=== PATIENT | female | born 1965 | race African-American/Black ===

== ENCOUNTER 2017-05-08 18:17 | Emergency (ER) | payer SELFPAY ==
[2017-05-08] MEDS ORDERED: Fluorescein Opthalmic Strip ONE (18:55)
[2017-05-08] MEDS ORDERED: Proparacaine 0.5% Opth 15 ML BOT ONE (18:55)
[2017-05-08] MEDS ORDERED: HYDROcodone/Acetaminophen 7.5/325 mg Tablet ONE (18:55)
[2017-05-08] MEDS ORDERED: Erythromycin Base 0.5% Oint 1 GM TUBE ONE (19:46)
[2017-05-08] MEDS ORDERED: Oxymetazoline HCl 0.05% ( 15 ML ) ONE (19:46)
== END 2017-05-08 20:15 | disposition home or self-care (01) ==
LOC: ERS 18:17
DX: H16.002 Unspecified corneal ulcer, left eye (principal); J01.90 Acute sinusitis, unspecified; H00.16 Chalazion left eye, unspecified eyelid; E78.5 Hyperlipidemia, unspecified; I10 Essential (primary) hypertension; F17.210 Nicotine dependence, cigarettes, uncomplicated; Z86.73 Personal history of transient ischemic attack (TIA), and cerebral infarction without residual deficits; Z79.899 Other long term (current) drug therapy
CPT/HCPCS: 99282

== ENCOUNTER 2017-06-30 11:11 | Emergency (ER) | payer OTHER, SELFPAY ==
[2017-06-30] MEDS ORDERED: Acetaminophen 500 MG TAB ONE (12:36)
[2017-06-30] MEDS ORDERED: Diazepam 5 MG TAB ONE (12:36)
[2017-06-30] MEDS ORDERED: traMADol HCl 50 MG TAB ONE (13:48)
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
== END 2017-06-30 14:13 | disposition home or self-care (01) ==
LOC: ERS 11:11
DX: S39.012A Strain of muscle, fascia and tendon of lower back, initial encounter (principal); M54.2 Cervicalgia; E78.5 Hyperlipidemia, unspecified; F17.210 Nicotine dependence, cigarettes, uncomplicated; I10 Essential (primary) hypertension; Z86.73 Personal history of transient ischemic attack (TIA), and cerebral infarction without residual deficits; V49.50XA Passenger injured in collision with unspecified motor vehicles in traffic accident, initial encounter
CPT/HCPCS: 72040

== ENCOUNTER 2017-09-08 09:46 | Emergency (ER) | payer OTHER, SELFPAY | END 2017-09-08 11:21 | disposition home or self-care (01) | LOC: ERS 09:46 | DX: B34.9 Viral infection, unspecified (principal); E78.5 Hyperlipidemia, unspecified; I10 Essential (primary) hypertension; F17.210 Nicotine dependence, cigarettes, uncomplicated; Z79.899 Other long term (current) drug therapy | CPT/HCPCS: 99283 ==

== ENCOUNTER 2017-11-09 09:17 | Emergency (ER) | payer SELFPAY ==
[2017-11-09] MEDS ORDERED: Acetaminophen/Codeine 30-300mg Tablet ONE (10:21)
[2017-11-09 10:41] LABS: Bilirubin Negative (Negative); Blood, Urine Negative (Negative); Clarity CLEAR (Clear); Glucose, Urine (Dipstick) Negative (Negative); Leukocyte Trace (Negative); Nitrite Negative (Negative); Protein, Urine (Dipstick) Negative (Neg-Trace); Specific Gravity, Urine 1.015 (1.002-1.036); pH, Urine 6.5 (5.0-9.0)
[2017-11-09 10:43] LABS: Bacteria/HPF Rare-Few HPF (None Seen); Hyaline Casts/LPF 4-6 HYALINE CAST LPF (0-3 Hyaline); Pathc Cast-AUWi Flag 1.45 (0-2.49); Pregnancy Test - Urine (BHCG) Negative (Negative); Pregu Control Background? CLEAR/WHITE (CLR/WHITE); Pregu Control Bar Appear? YES (CONTROL BAR); Specific Gravity 1.015 (1.002-1.036)
--- NOTE | 2017-11-09 11:45 | ULT ---
PELVIC ULTRASOUND: Date: 11-09-17 History: Left sided pelvic pain. FINDINGS: Multiple transabdominal and endovaginal sonographic images of the pelvis are obtained. The ovaries ar e not visualized and there is only limited visualization of the uterus on transabdominal imaging. On endovaginal imaging, the uterus measures 8.8 cm x 6.0 cm x 8.9 cm. There is a slightly heterogeneo us mass in the left aspect of the body of the uterus measuring 5.8 cm x 5.3 cm x 5.1 cm. There is a s mall hypoechoic mass seen in the anterior aspect body of the uterus which measures 1.6 cm x 1.0 x 1.6 cm. These masses are likely related to uterine fibroids. Masses were seen in the uterus on prior exa m on 03-28-16. Measurements of the larger uterine mass on this exam are actually smaller than on the p rior exam where the mass measured 6.4 cm x 5.9 cm x 5.6 cm. The endometrial stripe measures 0.8 cm which is abnormal in a post-menopausal female patient but woul d be within normal limits in a pre-menopausal female patient. The ovaries are not seen due to shadowing from bowel gas. There is a small amount of free fluid seen in the cul-de-sac. IMPRESSION: 1. Endometrial stripe thickness measures 0.8 cm. As noted above, this is abnormal in a post-menopausa l female patient but would be within normal limits in a normal menstruating patient. 2. Uterine masses with largest uterine mass also seen on prior study in 2016. The smaller hypoechoic mass was not visualized on the prior study. However, findings are likely related to uterine fibroids . 3. Nonvisualization of bilateral ovaries. No adnexal mass is appreciated on this examination, but the re is limited evaluation due to shadowing from bowel gas. 3. Small amount of free fluid in the cul-de-sac. POS: [facility]
== END 2017-11-09 12:21 | disposition home or self-care (01) ==
LOC: ERS 09:17
DX: D25.9 Leiomyoma of uterus, unspecified (principal); E78.5 Hyperlipidemia, unspecified; I10 Essential (primary) hypertension; Z86.73 Personal history of transient ischemic attack (TIA), and cerebral infarction without residual deficits; F17.210 Nicotine dependence, cigarettes, uncomplicated; Z79.899 Other long term (current) drug therapy
CPT/HCPCS: 76856; 81003; 81015; 81025

== ENCOUNTER 2018-01-16 14:29 | Emergency (ER) | payer SELFPAY | END 2018-01-16 15:15 | disposition home or self-care (01) | LOC: ERS 14:29 | DX: H10.9 Unspecified conjunctivitis (principal); J32.9 Chronic sinusitis, unspecified; E78.5 Hyperlipidemia, unspecified; I10 Essential (primary) hypertension; Z86.73 Personal history of transient ischemic attack (TIA), and cerebral infarction without residual deficits; F17.210 Nicotine dependence, cigarettes, uncomplicated; Z79.899 Other long term (current) drug therapy | CPT/HCPCS: 99406 ==

== ENCOUNTER 2018-04-03 21:42 | Emergency (ER) | payer OTHER, SELFPAY ==
--- NOTE | 2018-04-03 22:31 | RAD ---
RADIOGRAPH CHEST 1 VIEW: HISTORY: A 52-year-old female with chest pain. FINDINGS: There are no air space densities, pulmonary edema, pneumothorax, or cardiomegaly. The lateral costop hrenic angles are sharp. IMPRESSION: No acute cardiopulmonary findings. jn [] POS: [facility]
[2018-04-03 22:58] LABS: Bilirubin Negative (Negative); Blood, Urine Negative (Negative); Clarity CLEAR (Clear); Glucose, Urine (Dipstick) Negative (Negative); Leukocyte Negative (Negative); Nitrite Negative (Negative); Protein, Urine (Dipstick) Negative (Neg-Trace); Specific Gravity, Urine 1.019 (1.002-1.036); pH, Urine 6.5 (5.0-9.0)
[2018-04-03] MEDS ORDERED: Metoclopramide HCl 10 MG/2 ML VIAL ONE (23:00)
[2018-04-03] MEDS ORDERED: diphenhydrAMINE 50 MG/ML VIAL ONE (23:00)
[2018-04-03 23:09] LABS: #Eosinphils 0.1 thou/uL (0.0-0.7); #Lymphocytes 1.5 thou/uL (1.20-3.40); #Monocytes 0.5 thou/uL (0.11-0.59); #Neutrophils 1.8 thou/uL (1.40-6.50); %Basophils 1.1 % (0.0-1.0); %Eosinophils 1.7 % (0.0-10.0); %Lymphocytes 38.4 % (21.0-51.0); %Monocytes 12.2 % (0.0-10.0); %Neutrophils 46.6 % (42.0-75.0); Hemoglobin 13.4 g/dL (12.0-16.0); Mean Corpuscular HGB CONC 35.3 g/dL (32.0-36.0); Mean Corpuscular Hemoglobin 30.4 pg (27.0-31.0); Mean Corpuscular Volume 86.1 fL (78.0-98.0); Mean Platelet Volume 7.9 fL (7.4-10.4); Platelet Count 229 thou/uL (130-400); RBC Distribution Width 13.9 % (11.5-14.5); Red Blood Cell (RBC) Count 4.39 mill/uL (4.20-5.40); White Blood Cell (WBC) Count 3.9 thou/uL (4.8-10.8)
[2018-04-03 23:30] LABS: ALT (SGPT) 11 U/L (8-55); AST (SGOT) 13 U/L (5-34); Albumin 3.8 g/dL (3.5-5.0); Alkaline Phosphatase 45 U/L (40-150); Anion Gap 11 mmol/L (10-20); BUN (Urea Nitrogen) 16 mg/dL (9.8-20.1); Bilirubin, Total 0.2 mg/dL (0.2-1.2); Calc. Creatinine Clearance 0 mL/min (70-130); Calcium 9.1 mg/dL (7.8-10.44); Carbon Dioxide 27 mmol/L (22-29); Chloride 104 mmol/L (98-107); Estimated GFR-MDRD 68; Globulin 3.6 g/dL (2.4-3.5); Glucose 102 mg/dL (70-105); Potassium 3.5 mmol/L (3.5-5.1); Protein, Total 7.4 g/dL (6.0-8.3); Sodium 138 mmol/L (136-145)
[2018-04-03 23:34] LABS: CKMB 1.4 ng/mL (0-6.6); Troponin I Less than 0.010 ng/mL (< 0.028)
== END 2018-04-04 00:18 | disposition home or self-care (01) ==
LOC: ERS 21:42
DX: R51 Headache (principal); R07.89 Other chest pain; E78.5 Hyperlipidemia, unspecified; I10 Essential (primary) hypertension; Z86.73 Personal history of transient ischemic attack (TIA), and cerebral infarction without residual deficits; F17.210 Nicotine dependence, cigarettes, uncomplicated; Z79.899 Other long term (current) drug therapy
CPT/HCPCS: 71045; 80053; 81003; 82553; 84484; 84702; 85025; 85379; 93005; 94760; 96365; 96375; J1200; J2765

== ENCOUNTER 2018-04-08 10:52 | Emergency (ER) | payer SELFPAY ==
[2018-04-08] MEDS ORDERED: Ondansetron HCl/PF 4 MG/2 ML Vial ONE (11:22)
[2018-04-08] MEDS ORDERED: Morphine 4 MG/ML VIAL ONE (11:25)
[2018-04-08 11:36] LABS: Bilirubin Negative (Negative); Blood, Urine Negative (Negative); Clarity CLOUDY (Clear); Glucose, Urine (Dipstick) Negative (Negative); Leukocyte Negative (Negative); Nitrite Negative (Negative); Protein, Urine (Dipstick) Negative (Neg-Trace); Specific Gravity, Urine 1.026 (1.002-1.036); Urobilinogen 0.2 mg/dL (0.2-1.0)
[2018-04-08 11:37] LABS: Pregnancy Test - Urine (BHCG) Negative (Negative); Pregu Control Background? CLEAR/WHITE (CLR/WHITE); Pregu Control Bar Appear? YES (CONTROL BAR); Specific Gravity 1.026 (1.002-1.036)
[2018-04-08 11:40] LABS: #Eosinphils 0.1 thou/uL (0.0-0.7); #Lymphocytes 1.4 thou/uL (1.20-3.40); #Monocytes 0.8 thou/uL (0.11-0.59); #Neutrophils 3.8 thou/uL (1.40-6.50); %Basophils 0.8 % (0.0-1.0); %Lymphocytes 22.5 % (21.0-51.0); %Monocytes 12.7 % (0.0-10.0); %Neutrophils 63.1 % (42.0-75.0); Hemoglobin 13.5 g/dL (12.0-16.0); Mean Corpuscular HGB CONC 35.5 g/dL (32.0-36.0); Mean Corpuscular Hemoglobin 30.6 pg (27.0-31.0); Mean Corpuscular Volume 86.2 fL (78.0-98.0); Mean Platelet Volume 7.9 fL (7.4-10.4); Platelet Count 252 thou/uL (130-400); RBC Distribution Width 13.7 % (11.5-14.5)
[2018-04-08 11:52] LABS: ALT (SGPT) 10 U/L (8-55); AST (SGOT) 16 U/L (5-34); Alkaline Phosphatase 41 U/L (40-150); Anion Gap 12 mmol/L (10-20); BUN (Urea Nitrogen) 12 mg/dL (9.8-20.1); Bilirubin, Total 0.4 mg/dL (0.2-1.2); Calc. Creatinine Clearance 0 mL/min (70-130); Calcium 9.1 mg/dL (7.8-10.44); Carbon Dioxide 26 mmol/L (22-29); Chloride 103 mmol/L (98-107); Estimated GFR-MDRD 84; Globulin 3.7 g/dL (2.4-3.5); Glucose 98 mg/dL (70-105); Lipase 21 U/L (8-78); Potassium 3.2 mmol/L (3.5-5.1); Protein, Total 7.7 g/dL (6.0-8.3); Sodium 138 mmol/L (136-145)
--- NOTE | 2018-04-08 14:45 | ULT ---
RIGHT UPPER QUADRANT ULTRSOUND: DATE: 04/08/18. COMPARISON: None. HISTORY: Abdominal pain. TECHNIQUE: Multiplanar, quiñones scale sonographic imaging of the right upper quadrant provided. FINDINGS: The visualized pancreas is unremarkable, partially obscured by bowel gas and limited in assessment on the basis of patient body habitus. No focal liver lesion or intrahepatic biliary dilatation is note d. The right kidney measures 12 cm in craniocaudal dimension and demonstrates o evidence for a stone, hy dronephrosis, or mass. The hepatic parenchyma is mildly echogenic and heterogeneous. This could signify a degree of hepatic steatosis. The common bile duct measures approximately 5 mm, within normal limits. There is no gallbladder wall thickening, pericholecystic fluid, or gallstones. The screen making supervisor reports a positive Montiel's sign, significance uncertain. The right kidney measures 12 cm craniocaudal dimension and demonstrates no stone, hydronephrosis, or mass. IMPRESSION: Commercial Account Manager reports a positive Montiel's sign of uncertain etiology. No evidence for cholelithiasis, cholecystitis, or biliary dilatation. POS: [facility]
== END 2018-04-08 13:09 | disposition home or self-care (01) ==
LOC: ERS 10:52
DX: R10.11 Right upper quadrant pain (principal); E78.5 Hyperlipidemia, unspecified; I10 Essential (primary) hypertension; F17.210 Nicotine dependence, cigarettes, uncomplicated; Z86.73 Personal history of transient ischemic attack (TIA), and cerebral infarction without residual deficits; Z79.899 Other long term (current) drug therapy
CPT/HCPCS: 36415; 76705; 80053; 81003; 81025; 83690; 85025; 93005; 96361; 96374; 96375; J2270; J2405

== ENCOUNTER 2018-06-28 19:37 | Emergency (ER) | payer SELFPAY ==
[2018-06-28 20:01] LABS: Bilirubin Small (Negative); Blood, Urine Trace (Negative); Clarity CLOUDY (Clear); Glucose, Urine (Dipstick) Negative (Negative); Leukocyte Moderate (Negative); Nitrite Negative (Negative); Protein, Urine (Dipstick) Negative (Neg-Trace); Specific Gravity, Urine 1.027 (1.002-1.036); pH, Urine 5.5 (5.0-9.0)
[2018-06-28 20:04] LABS: Bacteria/HPF Rare-Few HPF (None Seen); Pathc Cast-AUWi Flag 1.16 (0-2.49)
[2018-06-28 20:13] LABS: Hyaline Casts/LPF 0-3 HYALINE CAST LPF (0-3 Hyaline)
== END 2018-06-28 20:36 | disposition home or self-care (01) ==
LOC: ERS 19:37
DX: N39.0 Urinary tract infection, site not specified (principal); A63.0 Anogenital (venereal) warts; E78.5 Hyperlipidemia, unspecified; I10 Essential (primary) hypertension; Z86.73 Personal history of transient ischemic attack (TIA), and cerebral infarction without residual deficits; Z71.6 Tobacco abuse counseling; F17.210 Nicotine dependence, cigarettes, uncomplicated
CPT/HCPCS: 81003; 81015; 87077; 87086; 87186; 99406

== ENCOUNTER 2018-08-08 10:08 | Emergency (ER) | payer SELFPAY ==
[2018-08-08] MEDS ORDERED: Acetaminophen 500 MG TAB ONE (10:47)
== END 2018-08-08 14:55 | disposition home or self-care (01) ==
LOC: ERS 10:08
DX: R50.9 Fever, unspecified (principal); Z20.828 Contact with and (suspected) exposure to other viral communicable diseases; E78.5 Hyperlipidemia, unspecified; I10 Essential (primary) hypertension; Z86.73 Personal history of transient ischemic attack (TIA), and cerebral infarction without residual deficits; F17.210 Nicotine dependence, cigarettes, uncomplicated; Z79.899 Other long term (current) drug therapy
CPT/HCPCS: 87804; 99283

== ENCOUNTER 2018-08-18 10:05 | Emergency (ER) | payer SELFPAY ==
--- NOTE | 2018-08-18 11:28 | ULT ---
RIGHT LOWER EXTREMITY VENOUS DUPLEX SONOGARM: HISTORY: Right leg pain and edema. FINDINGS: The right common femoral vein/greater saphenous junction was evaluated, along with the femoral, deep femoral, popliteal, and posterior tibial veins. There is good color and spectral Doppler flow, compr ession, and augmentation. In the area of pain, along the medial aspect of the right ankle, a nonspec ific, hypoechoic, linear focus measures up to 0.6 cm in width. Origin is not evident. IMPRESSION: No sonographic evidence of deep venous thrombosis within the right lower extremity. POS: [facility]
== END 2018-08-18 11:45 | disposition home or self-care (01) ==
LOC: ERS 10:05
DX: M79.81 Nontraumatic hematoma of soft tissue (principal); I10 Essential (primary) hypertension; F17.210 Nicotine dependence, cigarettes, uncomplicated; Z86.73 Personal history of transient ischemic attack (TIA), and cerebral infarction without residual deficits; Z79.899 Other long term (current) drug therapy

== ENCOUNTER 2019-01-04 01:42 | Outpatient (CLI) | payer OTHER ==
[2019-01-04 18:27] LABS: BHCG - Serum Negative (NEGATIVE); Pregs Control Background? CLEAR/WHITE (CLR/WHITE); Pregs Control Bar Appear? YES (CONTROL BAR)
[2019-01-04 18:41] LABS: Anion Gap 12 mmol/L (10-20); BUN (Urea Nitrogen) 12 mg/dL (9.8-20.1); Calc. Creatinine Clearance 0 mL/min (70-130); Calcium 9.4 mg/dL (7.8-10.44); Carbon Dioxide 28 mmol/L (22-29); Chloride 100 mmol/L (98-107); Estimated GFR-MDRD 80; Glucose 91 mg/dL (70-105); Potassium 3.3 mmol/L (3.5-5.1); Sodium 137 mmol/L (136-145)
--- NOTE | 2019-01-06 09:19 | EKG ---
Test Reason : Blood Pressure : / mmHG Vent. Rate : 074 BPM Atrial Rate : 074 BPM P-R Int : 152 ms QRS Dur : 092 ms QT Int : 454 ms P-R-T Axes : 057 027 017 degrees QTc Int : 503 ms Normal sinus rhythm Prolonged QT Abnormal ECG When compared with ECG of 08-APR-2018 11:23, T wave inversion now evident in Inferior leads Nonspecific T wave abnormality, improved in Lateral leads Confirmed by KAVON FLEMING, . SAllegra (4) on 01/06/2019 9:19:10 AM Referred By: [place] Confirmed By:DR. Mike JACOBSON MD
== END 2019-01-04 01:43 | disposition home or self-care (01) ==
LOC: LABBT 01:42
PROVIDERS: ATTEND Obstetrics & Gynecology
DX: Z01.818 Encounter for other preprocedural examination (principal); D25.9 Leiomyoma of uterus, unspecified; N92.0 Excessive and frequent menstruation with regular cycle
CPT/HCPCS: 80048; 84703; 93005; 93010

== ENCOUNTER 2019-01-04 16:30 | Inpatient (IN) | payer OTHER ==
[2019-01-04 17:32] VITALS: BMI 39.4
[2019-01-04 18:25] LABS: Hemoglobin 13.6 g/dL (12.0-16.0); Mean Corpuscular HGB CONC 34.9 g/dL (32.0-36.0); Mean Corpuscular Volume 85.9 fL (78.0-98.0); Mean Platelet Volume 8.4 fL (7.4-10.4); Platelet Count 325 thou/uL (130-400); Red Blood Cell (RBC) Count 4.55 mill/uL (4.20-5.40); White Blood Cell (WBC) Count 5.5 thou/uL (4.8-10.8)
--- NOTE | 2019-01-10 12:11 | HP ---
SCHEDULED PROCEDURE: Total laparoscopic hysterectomy with bilateral salpingectomy, possible bilateral oophorectomy. HISTORY OF PRESENT ILLNESS: Ms. Horvath is a 53-year-old 8, para 4, AB 4, status post x4, who was first seen by myself back in April of 2018. This was followed up after presentation to the emergency room with menorrhagia, anemia requiring blood transfusion. The patient was noted to have multiple fibroids and definitive surgical management. She has had a negative Pap smear. Intervening time has been spent getting the patient set up through [facility] for hysterectomy. DISEASE CASE MANAGER RN HISTORY: As noted. No history of dysplasia. PAST MEDICAL HISTORY: Positive for hypertension. PAST SURGICAL HISTORY: Positive for laparoscopy x2. SOCIAL HISTORY: The patient is a current everyday smoker. FAMILY HISTORY: Noncontributory. REVIEW OF SYSTEMS: Noncontributory. ALLERGIES: IBUPROFEN, LASIX, AND LISINOPRIL. MEDICATIONS: Amlodipine, hydrochlorothiazide, and tramadol. PHYSICAL EXAMINATION: GENERAL: Black female, in no acute distress. VITAL SIGNS: Height 5 feet and 5 inches, weight 247. Blood pressure 120/90, pulse 71, and respirations 18. HEENT: Within normal limits. LUNGS: Clear to auscultation bilaterally. HEART: Regular rate and rhythm. BREASTS: No masses bilaterally. ABDOMEN: Soft and nontender. No rebound or guarding. : Vulva without lesions. Vagina without discharge. Cervix, parous. Uterus, anteverted, irregular, 10-week size. Adnexa, no masses bilaterally. EXTREMITIES: No clubbing, cyanosis, or edema. DIAGNOSTIC STUDIES: Ultrasound in office revealed multiple fibroids, largest 4 cm with a uterus 10 cm in greatest diameter. IMPRESSION: Multiple leiomyoma uteri with menorrhagia. PLAN: Total laparoscopic hysterectomy bilateral salpingectomy, possible bilateral salpingo-oophorectomy. We will administer appropriate antibiotic and DVT prophylaxis. Job ID: [id number]
[2019-01-11] MEDS ORDERED: CeleCOXIB 100 MG CAP ONE (10:20)
[2019-01-11] MEDS ORDERED: Famotidine/PF 20 mg/2ml Vial ONE (10:20)
[2019-01-11] MEDS ORDERED: Gabapentin 300 MG CAP ONE (10:20)
[2019-01-11] MEDS ORDERED: Fentanyl 250 MCG/5 ML VIAL ONE (11:25)
[2019-01-11] MEDS ORDERED: Bupivacaine HCl 0.5%/Epinephrine 1:200,000/PF 30 ml Vial ONE (11:30)
[2019-01-11] MEDS ORDERED: Fentanyl 100 MCG/2 ML VIAL ONE (14:10)
[2019-01-11] MEDS ORDERED: Promethazine HCl 25 MG/ML VIAL SLOW IVP PRN (14:25)
[2019-01-11] MEDS ORDERED: Promethazine HCl 25 MG/ML VIAL IM PRN (14:25)
[2019-01-11] MEDS ORDERED: Meperidine HCl/PF 25 MG/ML VIAL SLOW IVP PRN (14:25)
[2019-01-11] MEDS ORDERED: Ondansetron HCl/PF 4 MG/2 ML Vial IVP PRN (14:25)
[2019-01-11] MEDS ORDERED: Simethicone Chewable 80 MG TAB PO PRN (15:46)
[2019-01-11] MEDS ORDERED: Bisacodyl 10 MG SUPP PR PRN (15:46)
[2019-01-11] MEDS ORDERED: diphenhydrAMINE 25 MG CAP PO PRN (15:46)
[2019-01-11] MEDS ORDERED: Morphine 4 MG/ML VIAL SLOW IVP PRN (15:46)
[2019-01-11] MEDS ORDERED: Zolpidem Tartrate 5 MG TAB PO PRN (15:46)
[2019-01-11] MEDS ORDERED: HYDROcodone/Acetaminophen 5/325 mg Tablet PO PRN (15:46)
[2019-01-11] MEDS: Sodium Chloride 0.9% 1,000 ML IV SCH ×3 (17:13→20:13)
--- NOTE | 2019-01-11 17:27 | OP ---
DATE OF PROCEDURE: 01/11/2019 PREOPERATIVE DIAGNOSES: Fibroids, menorrhagia, and morbid obesity. POSTOPERATIVE DIAGNOSES: Fibroids, menorrhagia, morbid obesity, and 4 cm simple cyst left ovary. PROCEDURES PERFORMED: Total laparoscopic hysterectomy with left salpingo-oophorectomy. RETURN TO FACTORY CLERK: Vivian Riggins DO ANESTHESIA: General endotracheal. ANESTHESIOLOGIST: Antonino Rhodes CRNA BLOOD LOSS: 150 mL. MEDICATIONS: 2 g Ancef preincision. DVT PROPHYLAXIS: SCDs. OPERATIVE FINDINGS: 1. Uterus approximately 10-week size with multiple leiomyoma. 2. A 4 to 5 cm simple left ovarian cyst. 3. Surgical absence of right fallopian tube. 4. Normal-appearing right ovary. 5. Hemostasis, clear urine. COUNTS: Correct at the end of the procedure. DISPOSITION: Recovery room in good condition. DESCRIPTION OF PROCEDURE: After obtaining appropriate informed consent, the patient was taken to the operating room, where general endotracheal anesthesia was achieved without difficulty. The patient was prepped and draped in dorsal lithotomy position in Wilfrido stirrups. Sliding speculum was placed in vagina. Cervix was identified, grasped with single-tooth tenaculum. Uterus sounded to 9 cm. BERNARDO manipulator with a 4 cm vaginal obturator and an 8 cm uterine mix house operator was placed without difficulty. Speculum and tenaculum were removed. Rivera catheter placed and hooked up to a 60 mL syringe. Parking Control Officer changed his clothes, turned attention to abdominal portion of procedure. A 5 mL of Marcaine injected in the superior aspect of the umbilicus and a 12 mm skin incision was made. Veress needle placed into abdominal cavity, insufflation was carried out, max pressure of 15 and volume approximately 3.5 L. A 12 mm trocar was introduced and confirmation of entry into the peritoneal cavity without trauma to the underlying viscera was noted. The patient was placed in steep Trendelenburg position. Right and left lateral da Oskar robot ports 8 mm were placed under direct visualization as well as an 11 mm recreation assistant port in the patient's right upper quadrant. Da Oskar robot was docked with monopolar scissors in the right hand and bipolar fenestrated forceps in the left. Findings as noted in the operative findings were noted and the attention was turned to the left side of the uterus. The infundibulopelvic ligament was identified, coagulated at the level of the ovary, transected, and carried through the broad, the round, and down to the level of the internal cervical os. Anteriorly, the vesicouterine peritoneum was incised sharply in the midline at the level of the cervix and dissected off the cervix and upper vagina. Pushing the bladder down, skeletonization of the uterine vessels was carried out on the patient's left and they were coagulated and transected at the level of the internal cervical os. Attention was turned to the right side, where surgical absence of the right fallopian tube was noted. The right ovary was within normal limits and the utero-ovarian ligament on the right was coagulated and transected into the broad, the round, and down to the uterine vessels at the level of the internal cervical os, identical was on the left side. Ureters noted to be well lateral to the surgical field on both sides and the uterine vessels were coagulated and transected. The bladder was well dissected off the cervix and upper vagina anteriorly. The vagina was entered sharply at 12 o'clock, extended from 12 to 3, 12 to 9, and then from 3 to 6 and from 9 to 6 amputating the specimen. Specimen was pulled out of the vagina to maintain pneumoperitoneum. Suction irrigation was carried out and no significant areas of bleeding were noted along the cuff. The cuff was closed using a running continuous suture lock 2-0 PDS in a running continuous manner from right to left and then back to right. Needle was removed from the abdominal cavity. Suction irrigation was carried out, which confirmed good hemostasis. The bladder was black filled. No evidence of injury to the bladder or incorporation of the bladder into the vaginal cuff closure was noted. Tisseel was applied across all surgical dao to ensure good hemostasis. The da Oskar instruments removed. The de Oskar undocked and the abdomen desufflated of carbon dioxide. Trocars removed x4. Fascia reapproximated the umbilical trocar using 0 Vicryl and UR5 needle and skin reapproximated x4 using 4-0 Monocryl and Dermabond. Specimens removed from the vagina and the vagina inspected, noted to be dry and well closed and no evidence of laceration of the vagina from the uterine specimen was noted. The patient awakened, extubated, and taken to the recovery room in good condition. Job ID: [id number]
[2019-01-11] MEDS: Acetaminophen 1,000 MG in Premix Bag 1 BAG IVPB SCH ×2 (18:03→22:54)
[2019-01-11] MEDS: HYDROcodone/Acetaminophen 5/325 mg Tablet PO PRN (21:31)
[2019-01-12] MEDS: Morphine 2 MG/ML SYRINGE SLOW IVP PRN ×2 (00:48→09:13)
[2019-01-12 04:44] LABS: Hemoglobin 12.4 g/dL (12.0-16.0); Mean Corpuscular HGB CONC 33.7 g/dL (32.0-36.0); Mean Corpuscular Hemoglobin 29.8 pg (27.0-31.0); Mean Corpuscular Volume 88.3 fL (78.0-98.0); Mean Platelet Volume 8.4 fL (7.4-10.4); Platelet Count 260 thou/uL (130-400); RBC Distribution Width 14.3 % (11.5-14.5); Red Blood Cell (RBC) Count 4.15 mill/uL (4.20-5.40); White Blood Cell (WBC) Count 11.1 thou/uL (4.8-10.8)
[2019-01-12] MEDS: Acetaminophen 1,000 MG in Premix Bag 1 BAG IVPB SCH (04:53)
[2019-01-12] MEDS: HYDROcodone/Acetaminophen 5/325 mg Tablet PO PRN (05:04)
[2019-01-12] MEDS ORDERED: Hydrochlorothiazide 25 MG TAB PO SCH (09:00)
[2019-01-12] MEDS ORDERED: Verapamil 80 MG TAB PO SCH (09:00)
[2019-01-12] MEDS: Sodium Chloride 0.9% 1,000 ML IV SCH (09:09)
[2019-01-12 11:22] VITALS: BP 164/83; TEMP 98.6
--- NOTE | 2019-01-12 12:55 | DIS ---
DATE OF ADMISSION: 01/11/2019 DATE OF DISCHARGE: 01/12/2019 PRINCIPAL PROCEDURE: Total laparoscopic hysterectomy with left salpingo-oophorectomy. SUMMARY OF HOSPITAL COURSE: The patient underwent the aforementioned surgery at approximately noon on 01/11. She had an uncomplicated surgical procedure with minimal EBL. Hematocrit went from 39.1% to 36.6% on postoperative day #1, the patient had urine output of 2500 mL on a Rivera postoperatively and was voiding with ease on the morning after surgery. PHYSICAL EXAMINATION: VITAL SIGNS: Include blood pressure of 113/75, temperature 98.6, pulse 55, respirations 18. HEENT: Within normal limits. LUNGS: Clear to auscultation bilaterally. HEART: Regular rhythm. ABDOMEN: Soft and nontender. Incision is intact and dry. Perineum, dry. EXTREMITIES: No clubbing, cyanosis, or edema. IMPRESSION: The patient is doing well on postoperative day #1, status post total laparoscopic hysterectomy with left salpingo-oophorectomy. PLAN: Discharge home. The patient's [place] was sent out to her pharmacy in [place] preoperatively. ER precautions with postop hysterectomy restrictions and follow up at [facility] in 6 weeks. Job ID: [id number]
== END 2019-01-12 13:36 | disposition home or self-care (01) | DRG 743 ==
LOC: SURG A 01-11 09:38 → SJJU 01-11 14:31
PROVIDERS: ADMIT Obstetrics & Gynecology; ATTEND Obstetrics & Gynecology
PROC: 0UT94ZZ Resection of Uterus, Percutaneous Endoscopic Approach (ICD-10-PCS; principal; 2019-01-11)
PROC: 0UT64ZZ Resection of Left Fallopian Tube, Percutaneous Endoscopic Approach (ICD-10-PCS; 2019-01-11)
PROC: 0UT14ZZ Resection of Left Ovary, Percutaneous Endoscopic Approach (ICD-10-PCS; 2019-01-11)
DX: D25.9 Leiomyoma of uterus, unspecified (principal); I10 Essential (primary) hypertension; F17.200 Nicotine dependence, unspecified, uncomplicated; E66.01 Morbid (severe) obesity due to excess calories; N83.202 Unspecified ovarian cyst, left side; Z98.890 Other specified postprocedural states; Z88.8 Allergy status to other drugs, medicaments and biological substances; Z79.899 Other long term (current) drug therapy; Z88.6 Allergy status to analgesic agent; Z68.39 Body mass index [BMI] 39.0-39.9, adult
CPT/HCPCS: 36415; 85027; 86850; 86900; 86901; 88307; J0131; J0670; J0690; J2270; J3010; S0028

== ENCOUNTER 2019-08-03 20:12 | Emergency (ER) | payer SELFPAY ==
[2019-08-03 20:42] LABS: #Basophils 0.1 thou/uL (0.0-0.2); #Eosinphils 0.1 thou/uL (0.0-0.7); #Lymphocytes 1.7 thou/uL (1.20-3.40); #Monocytes 0.4 thou/uL (0.11-0.59); #Neutrophils 2.3 thou/uL (1.40-6.50); %Basophils 1.4 % (0.0-1.0); %Eosinophils 1.4 % (0.0-10.0); %Lymphocytes 37.2 % (21.0-51.0); %Monocytes 9.3 % (0.0-10.0); %Neutrophils 50.6 % (42.0-75.0); Hemoglobin 13.2 g/dL (12.0-16.0); Mean Corpuscular HGB CONC 33.8 g/dL (32.0-36.0); Mean Corpuscular Hemoglobin 29.3 pg (27.0-31.0); Mean Corpuscular Volume 86.7 fL (78.0-98.0); Mean Platelet Volume 8.2 fL (7.4-10.4); Platelet Count 251 thou/uL (130-400); RBC Distribution Width 14.3 % (11.5-14.5); Red Blood Cell (RBC) Count 4.51 mill/uL (4.20-5.40); White Blood Cell (WBC) Count 4.6 thou/uL (4.8-10.8)
--- NOTE | 2019-08-03 21:02 | RAD ---
PORTABLE CHEST: 08/03/19 HISTORY: Chest pain starting about an hour ago. COMPARISON: 04/03/18 study. Heart size within normal limits. There are atherosclerotic changes of the aorta. The lungs are clear of infiltrates. IMPRESSION: No active intrathoracic disease. POS: [facility]
[2019-08-03 21:05] LABS: ALT (SGPT) 18 U/L (8-55); AST (SGOT) 22 U/L (5-34); Alkaline Phosphatase 49 U/L (40-110); Anion Gap 10 mmol/L (10-20); BUN (Urea Nitrogen) 13 mg/dL (9.8-20.1); Bilirubin, Total 0.3 mg/dL (0.2-1.2); Calc. Creatinine Clearance 0 mL/min (70-130); Calcium 8.8 mg/dL (7.8-10.44); Carbon Dioxide 28 mmol/L (22-29); Chloride 106 mmol/L (98-107); Estimated GFR-MDRD 69; Globulin 3.3 g/dL (2.4-3.5); Glucose 90 mg/dL (70-105); Potassium 3.2 mmol/L (3.5-5.1); Protein, Total 7.3 g/dL (6.0-8.3); Sodium 141 mmol/L (136-145)
[2019-08-03] MEDS ORDERED: Potassium Chloride 20 MEQ TAB ONE (22:00)
== END 2019-08-03 23:00 | disposition home or self-care (01) ==
LOC: ERS 20:12
DX: F43.0 Acute stress reaction (principal); R07.9 Chest pain, unspecified; I10 Essential (primary) hypertension; F17.210 Nicotine dependence, cigarettes, uncomplicated; Z86.73 Personal history of transient ischemic attack (TIA), and cerebral infarction without residual deficits; Z79.899 Other long term (current) drug therapy
CPT/HCPCS: 71045; 80053; 83880; 84484; 85025; 93005; 94760

== ENCOUNTER 2019-09-11 23:14 | Emergency (ER) | payer BC | END 2019-09-11 23:46 | disposition home or self-care (01) | LOC: ERS 23:14 | DX: M25.531 Pain in right wrist (principal); I10 Essential (primary) hypertension; M19.90 Unspecified osteoarthritis, unspecified site; F17.210 Nicotine dependence, cigarettes, uncomplicated; Z79.899 Other long term (current) drug therapy; Z86.73 Personal history of transient ischemic attack (TIA), and cerebral infarction without residual deficits | CPT/HCPCS: 99283 ==

== ENCOUNTER 2019-09-14 21:19 | Emergency (ER) | payer BC ==
[2019-09-14] MEDS ORDERED: Ondansetron ODT 4 MG TAB ONE (21:40)
[2019-09-14] MEDS ORDERED: Dicyclomine 20 MG TAB ONE (21:40)
== END 2019-09-14 21:47 | disposition home or self-care (01) ==
LOC: ERS 21:19
DX: K52.9 Noninfective gastroenteritis and colitis, unspecified (principal); F17.210 Nicotine dependence, cigarettes, uncomplicated; I10 Essential (primary) hypertension; M19.90 Unspecified osteoarthritis, unspecified site; Z86.73 Personal history of transient ischemic attack (TIA), and cerebral infarction without residual deficits; Z79.899 Other long term (current) drug therapy
CPT/HCPCS: 99283; Q0162

== ENCOUNTER 2019-10-03 23:32 | Emergency (ER) | payer BC ==
[2019-10-03] MEDS ORDERED: Ondansetron ODT 8 MG TAB ONE (23:48)
== END 2019-10-04 00:36 | disposition home or self-care (01) ==
LOC: ERS 23:32
DX: R11.2 Nausea with vomiting, unspecified (principal); R19.7 Diarrhea, unspecified; I10 Essential (primary) hypertension; M19.90 Unspecified osteoarthritis, unspecified site; F17.210 Nicotine dependence, cigarettes, uncomplicated; Z86.73 Personal history of transient ischemic attack (TIA), and cerebral infarction without residual deficits; Z79.899 Other long term (current) drug therapy
CPT/HCPCS: 99283

== ENCOUNTER 2019-10-10 11:35 | Emergency (ER) | payer BC ==
[2019-10-10] MEDS ORDERED: Acetaminophen 500 MG TAB ONE (12:56)
--- NOTE | 2019-10-10 13:03 | RAD ---
RADIOGRAPH RIGHT FOOT 3 VIEWS: Date: 10/10/2019 Time: 1210 hours HISTORY: 54-year-old female with right foot pain. FINDINGS: No fracture or dislocation. Mild to moderate DJD at first MTP without hallux valgus. Mild to moderate DJD at first IP. Os naviculare. The rest of the joints are unremarkable. No periostitis or destructi ve osseous lesion. IMPRESSION: 1. 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 2. Os naviculare. 3. No fracture. POS: [facility]
== END 2019-10-10 13:14 | disposition home or self-care (01) ==
LOC: ERS 11:35
DX: S99.911A Unspecified injury of right ankle, initial encounter (principal); I10 Essential (primary) hypertension; M19.90 Unspecified osteoarthritis, unspecified site; Z86.73 Personal history of transient ischemic attack (TIA), and cerebral infarction without residual deficits; F17.210 Nicotine dependence, cigarettes, uncomplicated; X58.XXXA Exposure to other specified factors, initial encounter; Y99.0 Civilian activity done for income or pay

== ENCOUNTER 2019-12-10 16:22 | Emergency (ER) | payer BC ==
[2019-12-10] MEDS ORDERED: Metoclopramide HCl 10 MG/2 ML VIAL ONE (17:20)
[2019-12-10] MEDS ORDERED: diphenhydrAMINE 50 MG/ML VIAL ONE (17:20)
[2019-12-10 17:42] LABS: #Basophils 0.1 thou/uL (0.0-0.2); #Eosinphils 0.1 thou/uL (0.0-0.7); #Lymphocytes 1.2 thou/uL (1.20-3.40); #Monocytes 0.7 thou/uL (0.11-0.59); #Neutrophils 6.2 thou/uL (1.40-6.50); %Basophils 0.9 % (0.0-1.0); %Eosinophils 0.6 % (0.0-10.0); %Lymphocytes 14.1 % (21.0-51.0); %Monocytes 8.8 % (0.0-10.0); %Neutrophils 75.5 % (42.0-75.0); Hemoglobin 13.1 g/dL (12.0-16.0); Mean Corpuscular HGB CONC 33.6 g/dL (32.0-36.0); Mean Corpuscular Hemoglobin 29.4 pg (27.0-31.0); Mean Corpuscular Volume 87.6 fL (78.0-98.0); Mean Platelet Volume 8.1 fL (7.4-10.4); Platelet Count 252 thou/uL (130-400); RBC Distribution Width 13.9 % (11.5-14.5); Red Blood Cell (RBC) Count 4.47 mill/uL (4.20-5.40); White Blood Cell (WBC) Count 8.2 thou/uL (4.8-10.8)
[2019-12-10 18:05] LABS: ALT (SGPT) 15 U/L (8-55); AST (SGOT) 24 U/L (5-34); Albumin 4.2 g/dL (3.5-5.0); Alkaline Phosphatase 39 U/L (40-110); Anion Gap 13 mmol/L (10-20); BUN (Urea Nitrogen) 17 mg/dL (9.8-20.1); Bilirubin, Total 0.4 mg/dL (0.2-1.2); Calc. Creatinine Clearance 0 mL/min (70-130); Calcium 9.6 mg/dL (7.8-10.44); Carbon Dioxide 30 mmol/L (22-29); Chloride 98 mmol/L (98-107); Estimated GFR-MDRD Greater than 90; Globulin 3.4 g/dL (2.4-3.5); Glucose 96 mg/dL (70-105); Protein, Total 7.6 g/dL (6.0-8.3); Sodium 138 mmol/L (136-145)
[2019-12-10 18:06] LABS: Potassium 2.5 mmol/L (3.5-5.1)
--- NOTE | 2019-12-10 18:15 | CT ---
CT BRAIN WITHOUT CONTRAST: Indication: 54-year-old female with headaches. Comparison: CT brain, 10-29-3014 FINDINGS: No acute infarct, hemorrhage, or hydrocephalus is evident. Remote ischemic insult involving the infer ior left cerebellar hemisphere is stable appearing. No midline shift is noted. Mastoid air cells and paranasal sinuses are clear. The skull is intact. IMPRESSION: No acute intracranial abnormality demonstrated. POS: [facility]
[2019-12-10] MEDS ORDERED: Potassium Chloride 20 MEQ TAB ONE (18:39)
[2019-12-10] MEDS ORDERED: Potassium Chloride 40 MEQ in Sodium Chloride 0.9% 500 ML IVPB SCH (19:00)
[2019-12-10 19:02] LABS: Bilirubin Negative (Negative); Blood, Urine Negative (Negative); Clarity Clear (Clear); Glucose, Urine (Dipstick) Normal (Negative); Leukocyte Negative Leu/uL (Negative); Nitrite Negative (Negative); Protein, Urine (Dipstick) Negative (Neg-Trace); Urobilinogen Normal mg/dL (Less than 2)
== END 2019-12-10 23:54 | disposition home or self-care (01) ==
LOC: ERS 16:22
DX: R51 Headache (principal); E87.6 Hypokalemia; I10 Essential (primary) hypertension; M19.90 Unspecified osteoarthritis, unspecified site; F17.210 Nicotine dependence, cigarettes, uncomplicated; Z86.73 Personal history of transient ischemic attack (TIA), and cerebral infarction without residual deficits; Z79.899 Other long term (current) drug therapy
CPT/HCPCS: 70450; 80053; 81003; 84484; 85025; 93005; 96361; 96365; 96366; 96375; J1200; J2765; J3480; J7030

== ENCOUNTER 2020-06-13 19:06 | Emergency (ER) | payer BC | END 2020-06-13 21:10 | disposition home or self-care (01) | LOC: ERS 19:06 | DX: S16.1XXA Strain of muscle, fascia and tendon at neck level, initial encounter (principal); I10 Essential (primary) hypertension; M19.90 Unspecified osteoarthritis, unspecified site; Z86.73 Personal history of transient ischemic attack (TIA), and cerebral infarction without residual deficits; F17.210 Nicotine dependence, cigarettes, uncomplicated; V43.52XA Car driver injured in collision with other type car in traffic accident, initial encounter | CPT/HCPCS: 99283 ==

== ENCOUNTER 2020-10-02 09:11 | Emergency (ER) | payer BC ==
[2020-10-02] MEDS ORDERED: Morphine 4 MG/ML VIAL ONE (09:39)
[2020-10-02] MEDS ORDERED: Ondansetron PF 4 MG/2 ML Vial ONE (09:39)
[2020-10-02 09:51] LABS: #Basophils 0.1 thou/uL (0.0-0.2); #Eosinphils 0.1 thou/uL (0.0-0.7); #Lymphocytes 1.2 thou/uL (1.20-3.40); #Monocytes 0.5 thou/uL (0.11-0.59); #Neutrophils 2.9 thou/uL (1.40-6.50); %Basophils 1.1 % (0.0-1.0); %Eosinophils 1.3 % (0.0-10.0); %Lymphocytes 24.6 % (21.0-51.0); %Monocytes 11.2 % (0.0-10.0); %Neutrophils 61.8 % (42.0-75.0); Mean Corpuscular HGB CONC 33.3 g/dL (32.0-36.0); Mean Corpuscular Hemoglobin 28.9 pg (27.0-31.0); Mean Corpuscular Volume 86.7 fL (78.0-98.0); Mean Platelet Volume 8.6 fL (7.4-10.4); Platelet Count 263 thou/uL (130-400); RBC Distribution Width 14.1 % (11.5-14.5); Red Blood Cell (RBC) Count 4.86 mill/uL (4.20-5.40); White Blood Cell (WBC) Count 4.8 thou/uL (4.8-10.8)
[2020-10-02 10:11] LABS: ALT (SGPT) 14 U/L (8-55); AST (SGOT) 17 U/L (5-34); Albumin 4.2 g/dL (3.5-5.0); Alkaline Phosphatase 39 U/L (40-110); Anion Gap 12 mmol/L (10-20); BUN (Urea Nitrogen) 14 mg/dL (9.8-20.1); Bilirubin, Total 0.5 mg/dL (0.2-1.2); Calc. Creatinine Clearance 0 mL/min (70-130); Calcium 9.2 mg/dL (7.8-10.44); Carbon Dioxide 27 mmol/L (22-29); Chloride 101 mmol/L (98-107); Globulin 3.5 g/dL (2.4-3.5); Glucose 105 mg/dL (70-105); Potassium 3.3 mmol/L (3.5-5.1); Protein, Total 7.7 g/dL (6.0-8.3); Sodium 137 mmol/L (136-145)
--- NOTE | 2020-10-02 11:19 | CT ---
CT ABDOMEN AND PELVIS WITH CONTRAST: HISTORY: Abdominal pain. COMPARISON: CT abdomen and pelvis 04/28/2020. FINDINGS: Mild atelectasis in the lung bases. Similar appearance to incompletely evaluated nodule right middle lobe. Similar appearance of the subcapsular hypodensity hepatic segment 4A measuring 2.3 cm. The portal vein is patent. The spleen is normal. No peripancreatic inflammatory. Normal proximal s mall bowel rotation. Aortoiliac contour is nonaneurysmal. The celiac trunk and severe mesenteric arteries are patent. The appendix is present within the left lower quadrant of the abdomen. No dilated loops of large or small bowel. No free intraperitoneal gas or fluid. No pericholecystic inflammation. No hydronephro sis. No abnormal renal enhancing mass. The visualized thoracolumbar spine and sacrum are all intact. Asymmetric right worse than left SI antoinette int sclerosis with small erosions. IMPRESSION: 1. No acute inflammatory process in the ad or pelvis. 2. Size unchanged incompletely evaluated right middle lobe pulmonary nodules. 3. A 2.3 cm ciliated hepatic foregut cyst segment 4A. 4. Normal appendix. 5. No evidence of bowel obstruction. POS: [facility]
[2020-10-02 11:58] LABS: Bilirubin Negative (Negative); Blood, Urine Negative (Negative); Clarity Clear (Clear); Glucose, Urine (Dipstick) Normal (Negative); Ketone, Urine Negative (Negative); Leukocyte Negative Leu/uL (Negative); Nitrite Negative (Negative); Protein, Urine (Dipstick) Negative (Neg-Trace); Specific Gravity, Urine 1.029 (1.002-1.036); Urobilinogen Normal mg/dL (Less than 2)
[2020-10-02] MEDS ORDERED: Iopamidol-370 76% 500 ML 1 ML ONE (13:12)
[2020-10-05 14:35] LABS: Chlamydia by PCR Not Detected (NotDetected); GC by PCR Not Detected (NotDetected)
== END 2020-10-02 13:06 | disposition home or self-care (01) ==
LOC: ERS 09:11
DX: N76.0 Acute vaginitis (principal); I10 Essential (primary) hypertension; Z86.73 Personal history of transient ischemic attack (TIA), and cerebral infarction without residual deficits; F17.210 Nicotine dependence, cigarettes, uncomplicated; Z79.899 Other long term (current) drug therapy
CPT/HCPCS: 74177; 80053; 81003; 85025; 87480; 87491; 87510; 87591; 87660; 96372; 96374; 96375; J0500; J2270; J2405; Q9967

== ENCOUNTER 2020-11-20 14:56 | Emergency (ER) | payer BC ==
[~2020-11-20 14:56] MED LIST: Iopamidol-370 76% 500 ML 1 ML ONE
[2020-11-20 15:57] LABS: #Basophils 0.1 thou/uL (0.0-0.2); #Eosinphils 0.1 thou/uL (0.0-0.7); #Lymphocytes 1.2 thou/uL (1.20-3.40); #Monocytes 0.9 thou/uL (0.11-0.59); #Neutrophils 5.4 thou/uL (1.40-6.50); %Basophils 0.8 % (0.0-1.0); %Eosinophils 1.6 % (0.0-10.0); %Lymphocytes 15.9 % (21.0-51.0); %Monocytes 11.7 % (0.0-10.0); Hemoglobin 13.1 g/dL (12.0-16.0); Mean Corpuscular HGB CONC 34.2 g/dL (32.0-36.0); Mean Corpuscular Volume 87.9 fL (78.0-98.0); Mean Platelet Volume 8.4 fL (7.4-10.4); Platelet Count 244 thou/uL (130-400); RBC Distribution Width 14.4 % (11.5-14.5); Red Blood Cell (RBC) Count 4.38 mill/uL (4.20-5.40); White Blood Cell (WBC) Count 7.7 thou/uL (4.8-10.8)
[2020-11-20 16:17] LABS: ALT (SGPT) 8 U/L (8-55); AST (SGOT) 13 U/L (5-34); Alkaline Phosphatase 51 U/L (40-110); Anion Gap 11 mmol/L (10-20); BUN (Urea Nitrogen) 14 mg/dL (9.8-20.1); Bilirubin, Total 0.2 mg/dL (0.2-1.2); Calc. Creatinine Clearance 0 mL/min (70-130); Calcium 9.2 mg/dL (7.8-10.44); Carbon Dioxide 31 mmol/L (22-29); Chloride 103 mmol/L (98-107); Glucose 87 mg/dL (70-105); Lipase 31 U/L (8-78); Potassium 3.4 mmol/L (3.5-5.1); Sodium 142 mmol/L (136-145)
[2020-11-20] MEDS ORDERED: Morphine 4 MG/ML VIAL ONE (16:23)
[2020-11-20] MEDS ORDERED: Ondansetron PF 4 MG/2 ML Vial ONE (16:23)
[2020-11-20 17:04] LABS: Bilirubin Negative (Negative); Blood, Urine Negative (Negative); Clarity Clear (Clear); Glucose, Urine (Dipstick) Normal (Negative); Ketone, Urine Negative (Negative); Leukocyte Negative Leu/uL (Negative); Nitrite Negative (Negative); Protein, Urine (Dipstick) 10 mg/dL (Neg-Trace); Urobilinogen Normal mg/dL (Less than 2)
== END 2020-11-20 18:11 | disposition home or self-care (01) ==
LOC: ERS 14:56
DX: K64.4 Residual hemorrhoidal skin tags (principal); R10.814 Left lower quadrant abdominal tenderness; I10 Essential (primary) hypertension; M19.90 Unspecified osteoarthritis, unspecified site; F17.210 Nicotine dependence, cigarettes, uncomplicated; Z86.73 Personal history of transient ischemic attack (TIA), and cerebral infarction without residual deficits
CPT/HCPCS: 74177; 80053; 81003; 82270; 83690; 85025; 96374; 96375; J2270; J2405; Q9967

== ENCOUNTER 2021-04-24 08:30 | Emergency (ER) | payer BC ==
[2021-04-24] MEDS ORDERED: HYDROcodone/Acetaminophen 7.5/325 mg Tablet ONE (09:54)
== END 2021-04-24 10:05 | disposition home or self-care (01) ==
LOC: ERS 08:30
DX: M25.552 Pain in left hip (principal); M79.671 Pain in right foot; M54.42 Lumbago with sciatica, left side; M79.89 Other specified soft tissue disorders; I10 Essential (primary) hypertension; M19.90 Unspecified osteoarthritis, unspecified site; F17.210 Nicotine dependence, cigarettes, uncomplicated; Z86.73 Personal history of transient ischemic attack (TIA), and cerebral infarction without residual deficits; W20.8XXA Other cause of strike by thrown, projected or falling object, initial encounter

== ENCOUNTER 2021-05-19 09:23 | Outpatient (CLI) | payer OTHER ==
[2021-05-19 11:40] LABS: #Basophils 0.1 10x3/uL (0.0-0.2); #Monocytes 0.4 10x3/uL (0.0-1.1); #Neutrophils 1.5 10x3/uL (1.5-8.4); %Basophils 1.6 % (0.0-2.0); %Lymphocytes 36.8 % (18.0-47.0); %Monocytes 11.7 % (0.0-10.0); %Neutrophils 48.6 % (40.0-75.0); Hemoglobin 13.2 g/dL (12.0-15.5); Mean Corpuscular HGB CONC 32.7 g/dL (32.0-36.0); Mean Corpuscular Hemoglobin 27.7 pg (27.0-33.0); Mean Corpuscular Volume 84.7 fl (81.6-98.3); Mean Platelet Volume 11.2 fl (7.4-10.4); Platelet Count 289 10x3/uL (150-450); RBC Distribution Width 15.2 % (11.5-14.5); Red Blood Cell (RBC) Count 4.77 10x6/uL (3.90-5.03); White Blood Cell (WBC) Count 3.1 10x3/uL (3.5-10.5)
[2021-05-19 11:48] LABS: Anion Gap 13 mmol/L (10-20); BUN (Urea Nitrogen) 14 mg/dL (9.8-20.1); Calc. Creatinine Clearance 0 mL/min (70-130); Calcium 9.3 mg/dL (7.8-10.44); Carbon Dioxide 26 mmol/L (22-29); Chloride 106 mmol/L (98-107); Glucose 83 mg/dL (70-105); Sodium 141 mmol/L (136-145)
[2021-05-19 22:56] LABS: SARS-CoV-2 PCR by NAA Not Detected (NotDetected)
== END 2021-05-19 09:24 | disposition home or self-care (01) ==
LOC: LABBT 09:23
PROVIDERS: ATTEND Orthopaedic Surgery Hand Surgery
DX: Z01.818 Encounter for other preprocedural examination (principal); G56.02 Carpal tunnel syndrome, left upper limb; M65.332 Trigger finger, left middle finger; M65.342 Trigger finger, left ring finger; Z20.822 Contact with and (suspected) exposure to COVID-19
CPT/HCPCS: 71046; 80048; 85025; 93005; 93010; U0003; U0005

== ENCOUNTER 2021-05-22 10:53 | Day surgery (SDC) | payer OTHER ==
[2021-05-20 15:14] VITALS: BMI 39.9
[2021-05-22] MEDS ORDERED: ceFAZolin 2 GM/DEX 5% 100 ML BAG ONE (13:27)
[2021-05-22] MEDS ORDERED: Bacitracin Zinc Ointment 30 gm TUBE ONE (16:11)
[2021-05-22] MEDS ORDERED: Bupivacaine PF 0.5% 30 ML VIAL ONE (16:11)
[2021-05-22] MEDS ORDERED: Betamet Acet/Betamet Na Ph 30 MG/5 ML VIAL ONE (16:11)
[2021-05-22] MEDS ORDERED: Fentanyl 100 MCG/2 ML VIAL ONE ×2 (16:20→18:55)
[2021-05-22] MEDS ORDERED: Glycopyrrolate 0.2 MG/ML 5 ML SYRINGE ONE (16:35)
[2021-05-22] MEDS ORDERED: ePHEDrine 50 MG/ML VIAL ONE (16:35)
[2021-05-22] MEDS ORDERED: Lidocaine 1% PF 5 ML VIAL ONE (16:35)
[2021-05-22] MEDS ORDERED: Dexamethasone 20 MG/5 ML VIAL ONE (16:35)
[2021-05-22] MEDS ORDERED: PHENYLEPHRINE-NS 100 MCG/ML 10 ML SYRINGE ONE (16:35)
[2021-05-22] MEDS ORDERED: PROPOFOL 200 MG/20 ML VIAL ONE (16:35)
[2021-05-22] MEDS ORDERED: Ondansetron PF 4 MG/2 ML Vial ONE ×2 (16:35→18:55)
[2021-05-22] MEDS ORDERED: Ketorolac Tromethamine 30 MG/ML VIAL ONE (18:55)
== END 2021-05-22 20:18 | disposition home or self-care (01) ==
LOC: SDC 10:53
PROVIDERS: ATTEND Orthopaedic Surgery Hand Surgery
PROC: 01N50ZZ Release Median Nerve, Open Approach (ICD-10-PCS; principal; 2021-05-22)
PROC: 0LN80ZZ Release Left Hand Tendon, Open Approach (ICD-10-PCS; principal; 2021-05-22)
DX: G56.03 Carpal tunnel syndrome, bilateral upper limbs (principal); G56.12 Other lesions of median nerve, left upper limb; M65.332 Trigger finger, left middle finger; M65.342 Trigger finger, left ring finger; I10 Essential (primary) hypertension; F17.210 Nicotine dependence, cigarettes, uncomplicated; Z86.73 Personal history of transient ischemic attack (TIA), and cerebral infarction without residual deficits; Z79.899 Other long term (current) drug therapy; Z88.6 Allergy status to analgesic agent; Z88.8 Allergy status to other drugs, medicaments and biological substances
CPT/HCPCS: J0702; J1100; J1885; J2405; J2704; J3010; J3490; S0020

== ENCOUNTER 2021-07-06 09:04 | Emergency (ER) | payer OTHER ==
[2021-07-06] MEDS ORDERED: Dexamethasone 4 MG TAB ONE (10:37)
== END 2021-07-06 10:41 | disposition home or self-care (01) ==
LOC: ERS 09:04
DX: M72.2 Plantar fascial fibromatosis (principal); I10 Essential (primary) hypertension; M19.90 Unspecified osteoarthritis, unspecified site; F17.210 Nicotine dependence, cigarettes, uncomplicated; Z86.73 Personal history of transient ischemic attack (TIA), and cerebral infarction without residual deficits
CPT/HCPCS: 99283; J8540

== ENCOUNTER 2021-09-18 10:04 | Emergency (ER) | payer OTHER, SELFPAY ==
[2021-09-18] MEDS ORDERED: diphenhydrAMINE 50 MG/ML VIAL ONE (11:17)
[2021-09-18] MEDS ORDERED: Famotidine/PF 20 mg/2ml Vial ONE ×2 (11:17→11:18)
[2021-09-18] MEDS ORDERED: methylPREDNISolone Sod Succ/PF 125 MG/2 ML VIAL ONE (11:17)
[2021-09-18 11:29] LABS: #Lymphocytes 1.2 thou/uL (1.20-3.40); #Monocytes 0.5 thou/uL (0.11-0.59); #Neutrophils 3.5 thou/uL (1.40-6.50); %Basophils 0.7 % (0.0-1.0); %Eosinophils 0.5 % (0.0-10.0); %Lymphocytes 22.8 % (21.0-51.0); %Monocytes 9.3 % (0.0-10.0); %Neutrophils 66.8 % (42.0-75.0); Hemoglobin 15.5 g/dL (12.0-16.0); Mean Corpuscular Hemoglobin 28.6 pg (27.0-31.0); Mean Corpuscular Volume 86.9 fL (78.0-98.0); Mean Platelet Volume 8.4 fL (7.4-10.4); Platelet Count 243 thou/uL (130-400); RBC Distribution Width 14.5 % (11.5-14.5); Red Blood Cell (RBC) Count 5.42 mill/uL (4.20-5.40); White Blood Cell (WBC) Count 5.2 thou/uL (4.8-10.8)
[2021-09-18 11:49] LABS: ALT (SGPT) 13 U/L (8-55); AST (SGOT) 15 U/L (5-34); Albumin 4.1 g/dL (3.5-5.0); Alkaline Phosphatase 48 U/L (40-110); Anion Gap 15 mmol/L (10-20); BUN (Urea Nitrogen) 18 mg/dL (9.8-20.1); Bilirubin, Total 0.4 mg/dL (0.2-1.2); Calc. Creatinine Clearance 0 mL/min (70-130); Calcium 9.4 mg/dL (7.8-10.44); Carbon Dioxide 23 mmol/L (22-29); Chloride 104 mmol/L (98-107); Globulin 3.6 g/dL (2.4-3.5); Glucose 111 mg/dL (70-105); Protein, Total 7.7 g/dL (6.0-8.3); Sodium 139 mmol/L (136-145)
[2021-09-18 12:10] LABS: Bilirubin Negative (Negative); Blood, Urine Negative (Negative); Clarity Clear (Clear); Glucose, Urine (Dipstick) Normal (Negative); Ketone, Urine Negative (Negative); Leukocyte Negative Leu/uL (Negative); Nitrite Negative (Negative); Protein, Urine (Dipstick) Negative (Neg-Trace); Specific Gravity, Urine 1.019 (1.002-1.036); Urobilinogen Normal mg/dL (Less than 2); pH, Urine 6.5 (5.0-9.0)
== END 2021-09-18 13:05 | disposition home or self-care (01) ==
LOC: ERS 10:04
DX: T78.40XA Allergy, unspecified, initial encounter (principal); Z86.73 Personal history of transient ischemic attack (TIA), and cerebral infarction without residual deficits; I10 Essential (primary) hypertension; F17.210 Nicotine dependence, cigarettes, uncomplicated; Z79.899 Other long term (current) drug therapy
CPT/HCPCS: 36415; 80053; 81003; 85025; 96374; 96375; J1200; J2930; S0028

== ENCOUNTER 2022-01-18 04:24 | Emergency (ER) | payer OTHER, SELFPAY ==
[2022-01-18] MEDS ORDERED: Orphenadrine Citrate 60 MG/2 ML VIAL IM SCH (05:30)
== END 2022-01-18 06:21 | disposition home or self-care (01) ==
LOC: ERS 04:24
DX: M62.830 Muscle spasm of back (principal); J06.9 Acute upper respiratory infection, unspecified; I10 Essential (primary) hypertension; F17.210 Nicotine dependence, cigarettes, uncomplicated; Z79.899 Other long term (current) drug therapy
CPT/HCPCS: 71045; 96372; J2360

== ENCOUNTER 2022-02-08 15:34 | Emergency (ER) | payer SELFPAY ==
[2022-02-08] MEDS ORDERED: HYDROcodone/Acetaminophen 10/325 mg Tablet ONE (16:47)
== END 2022-02-08 17:40 | disposition home or self-care (01) ==
LOC: ERS 15:34
DX: M25.521 Pain in right elbow (principal); I10 Essential (primary) hypertension; M19.90 Unspecified osteoarthritis, unspecified site; F17.210 Nicotine dependence, cigarettes, uncomplicated; Z86.73 Personal history of transient ischemic attack (TIA), and cerebral infarction without residual deficits

== ENCOUNTER 2023-03-06 15:11 | Emergency (ER) | payer OTHER ==
[2023-03-06] MEDS ORDERED: Ketorolac Tromethamine 30 MG/ML VIAL ONE (15:37)
[2023-03-06] MEDS ORDERED: HYDROcodone/Acetaminophen 5/325 mg Tablet ONE (15:54)
[2023-03-06 16:34] LABS: Hematocrit 39.9 % (36.0-47.0); Hemoglobin 13.9 g/dL (12.0-16.0); Mean Corpuscular HGB CONC 34.8 g/dL (32.0-36.0); Mean Corpuscular Hemoglobin 28.7 pg (27.0-31.0); Mean Corpuscular Volume 82.4 fl (78.0-98.0); Mean Platelet Volume 10.8 fL (7.4-10.4); Platelet Count 287 10x3/uL (130-400); Red Blood Cell (RBC) Count 4.84 mill/uL (4.20-5.40); White Blood Cell (WBC) Count 3.2 10x3/uL (4.8-10.8)
[2023-03-06 16:36] LABS: Delete Auto Diff?? YES; Manual Diff?? YES
[2023-03-06 16:57] LABS: Band 4 % (5-11); CellaVision Operator ID LAB.MJL; Eosinophils 2 % (0-10); Large Platelets 11.4 % (0-5); Lymphocytes 41 % (21-51); Monocytes 6 % (0-10); Neutrophil 42 % (42-75); Platelet Adequacy Comment Platelets Normal; RBC Morphology Within Normal Limits; Reactive Lymphocytes 3 % (0-10); Total Cell Count 114
[2023-03-06 16:58] LABS: ALT (SGPT) 19 U/L (8-55); AST (SGOT) 20 U/L (5-34); Albumin 4.4 g/dL (3.5-5.0); Alkaline Phosphatase 53 U/L (40-110); Anion Gap 12 mmol/L (10-20); BUN (Urea Nitrogen) 18 mg/dL (9.8-20.1); Bilirubin, Total 0.3 mg/dL (0.2-1.2); Calc. Creatinine Clearance 0 mL/min (70-130); Calcium 9.4 mg/dL (7.8-10.44); Carbon Dioxide 26 mmol/L (22-29); Chloride 104 mmol/L (98-107); Estimated GFR 84; Globulin 3.4 g/dL (2.4-3.5); Glucose 136 mg/dL (70-105); Potassium 3.1 mmol/L (3.5-5.1); Protein, Total 7.8 g/dL (6.0-8.3); Sodium 139 mmol/L (136-145)
[2023-03-06] MEDS ORDERED: Potassium Chloride 20 MEQ TAB ONE (17:04)
== END 2023-03-06 17:07 | disposition home or self-care (01) ==
LOC: ERS 15:11
DX: M10.9 Gout, unspecified (principal); E87.6 Hypokalemia; I10 Essential (primary) hypertension; Z86.73 Personal history of transient ischemic attack (TIA), and cerebral infarction without residual deficits; F17.210 Nicotine dependence, cigarettes, uncomplicated
CPT/HCPCS: 36415; 80053; 85025; 85379; J1885

== ENCOUNTER 2025-04-26 18:14 | Emergency (ER) | payer OTHER, SELFPAY ==
[2025-04-26 18:56] LABS: #Basophils 0.04 10x3/uL (0.0-0.2); #Eosinophils 0.08 10x3/uL (0.0-0.7); #Monocytes 0.55 10x3/uL (0.11-0.59); #Neutrophils 2.13 10x3/uL (1.40-6.50); %Basophils 0.9 % (0.0-1.0); %Eosinophils 1.8 % (0.0-10.0); %Lymphocytes 38.5 % (21.0-51.0); %Monocytes 12.0 % (0.0-10.0); %Neutrophils 46.6 % (42.0-75.0); Hematocrit 38.1 % (36.0-47.0); Hemoglobin 12.6 g/dL (12.0-16.0); Mean Corpuscular Hemoglobin 28.3 pg (27.0-31.0); Mean Corpuscular Volume 85.4 fL (78.0-98.0); Platelet Count 250 10x3/uL (130-400); Red Blood Cell (RBC) Count 4.46 mill/uL (4.20-5.40); White Blood Cell (WBC) Count 4.57 10x3/uL (4.8-10.8)
[2025-04-26] MEDS ORDERED: Ketorolac Tromethamine 30 MG (1 mL) VIAL ONE (19:09)
[2025-04-26 19:14] LABS: ALT (SGPT) Less than 7 U/L (Less than 34); AST (SGOT) 17 U/L (11-34); Albumin 3.7 g/dL (3.1-4.5); Alkaline Phosphatase 54 U/L (40-110); Anion Gap 15 mmol/L (10-20); BUN (Urea Nitrogen) 13 mg/dL (9.8-20.1); Bilirubin, Total 0.3 mg/dL (0.3-1.2); Calc. Creatinine Clearance 0 mL/min (70-130); Calcium 9.1 mg/dL (7.8-10.44); Carbon Dioxide 24 mmol/L (22-29); Chloride 107 mmol/L (98-107); Globulin 3.5 g/dL (2.4-3.5); Glucose 93 mg/dL (70-105); Potassium 3.5 mmol/L (3.5-5.1); Sodium 142 mmol/L (136-145)
[2025-04-26] MEDS ORDERED: Ondansetron PF 4 MG/2 ML Vial ONE (21:00)
== END 2025-04-26 21:08 | disposition home or self-care (01) ==
LOC: ERS 18:14
DX: R51.9 Headache, unspecified (principal); I10 Essential (primary) hypertension; I82.622 Acute embolism and thrombosis of deep veins of left upper extremity; F17.210 Nicotine dependence, cigarettes, uncomplicated; Z86.73 Personal history of transient ischemic attack (TIA), and cerebral infarction without residual deficits; Z55.6 Problems related to health literacy
CPT/HCPCS: 36415; 71045; 71275; 80053; 83880; 84484; 85025; 93005; 96374; 96375; J1885